=== PATIENT | female | born 1980 | race Caucasian/White ===

== ENCOUNTER 2016-12-06 22:21 | Inpatient (IN) ==
--- NOTE | 2016-12-06 23:13 | Emergency Department Note ---
Disposition Clinical Impression: Suicidal ideation Depression Qualifiers: Depression Type: major depressive disorder Active/Remission status: currently active Major depression episode severity: moderate Disposition: Admitted As Inpatient Condition: Good Time of Disposition: 01:38 Psych HPI - General Chief Complaint: ED Psychiatric Symptoms Stated Complaint: SI Time Seen by Provider: 12/06/16 22:58 Source: patient Mode of arrival: ambulatory Limitations: altered mental status Nursing Notes Reviewed: Yes Vital Signs Reviewed: Yes - History of Present Illness HPI Narrative: Patient has been recently , finalized in September,. She recently found out her ex- has started seeing one of her friends and she is quite upset. She was diagnosed as having bipolar disorder several years ago, has been on medication, but this recent stress has made her think of suicide. Her plan is to take an overdose of her medications. She states she has not acted upon any of these thoughts, and actually has had suicidal thoughts for some time now. She does take her medication on a regular basis, feels that it helps "somewhat". Recently her Latuda and Trazadone doses were increased. She was seeing Dr. Cheng, psychiatrist, but he has left the area so she currently without a psychiatrist. Her family physician, Dr. Soriano has been prescribing her medication. Pt complaint: suicidal ideation, feels depressed If medical clearance, reason: psychiatric condition Onset (ago): unknown Duration: changing over time, getting worse History of similar episodes: Yes Improves with: medication Context: significant life stressor Alleged intoxication: No Associated Psychiatric Symptoms: depression, suicidal ideation Traumatic symptoms: denies traumatic injury Treatments prior to arrival: none Self harm or harm to others: admits thoughts of self harm, has plan - Related Data Home Medications Medication Instructions Recorded Confirmed Buspirone HCl [Buspar] 10 mg PO BID 12/06/16 12/06/16 ClonazePAM [Klonopin] 0.5 mg PO BID PRN 12/06/16 12/06/16 Levothyroxine [Synthroid] 150 mcg PO DAILY 12/06/16 12/06/16 Lurasidone HCl [Latuda] 60 mg PO DAILY 12/06/16 12/06/16 Methylphenidate HCl 36 mg PO DAILY 12/06/16 12/06/16 [Methylphenidate ER] TraZODone 100 mg PO HS 02/08/17 02/08/17 Allergies Allergy/AdvReac Type Severity Reaction Status Date / Time No Known Allergies Allergy Verified 12/06/16 22:31 All systems ED: reviewed and negative except as stated. Constitutional: Denies: fever, chills, weakness, weight change Eyes: Denies: eye pain, eye discharge, vision change ENT ED: Denies: ear pain, throat pain, dental pain, hearing loss, epistaxis, congestion, dysphagia Cardiovascular: Denies: chest pain, palpitations, dyspnea on exertion, edema, syncope Respiratory: Denies: cough, dyspnea, wheezes, hemoptysis, stridor Gastrointestinal: Denies: abdominal pain, nausea, vomiting, diarrhea, constipation, hematemesis, melena, hematochezia Neurological: Denies: headache, weakness, numbness, paresthesias, confusion, abnormal gait, vertigo Psychiatric: Reports: anxiety, depression, suicidal thoughts Past Medical History - Past Medical History Attestation: Yes The following information was validated with the patient. Source: patient, obtained from family, nursing notes reviewed Medical history: Reports: non-contributory Psychiatric history: Reports: anxiety, bipolar, depression - Social History Smoking Status: Unknown if ever smoked Smokeless Tobacco Status: No Alcohol use: Reports: none Drug use: Reports: none Physical Exam - General Limitations: no limitations General appearance: alert - Head Head exam: atraumatic, normocephalic, normal inspection - Eye Eye exam: Present: normal appearance, PERRL, EOMI - ENT ENT exam: normal exam, normal oropharynx, mucous membranes moist - Neck Neck exam: Present: normal inspection, full ROM, trachea midline - Chest Chest inspection: Present: normal inspection, symmetric chest wall rise - Respiratory Respiratory exam: Present: normal lung sounds bilaterally - Cardiovascular Cardiovascular exam: Present: regular rate, normal rhythm, normal heart sounds - Extremities Exam Extremities exam: Present: normal inspection, full ROM. Absent: tenderness, pedal edema - Back Exam Back exam: Present: normal inspection, full ROM. Absent: tenderness - Neurological Exam Neurological exam: Present: alert, oriented X3, normal gait, reflexes normal - Psychiatric Psychiatric exam: Present: depressed, suicidal ideation - Skin Skin exam: Present: warm, dry, intact, normal color Course Vital Signs Temperature 98.1 F 12/06/16 22:35 Pulse Rate 90 12/06/16 22:35 Respiratory Rate 16 02/08/17 22:35 Blood Pressure 124/86 02/08/17 22:35 O2 Sat by Pulse Oximetry 97 12/06/16 22:35 Temperature 97.9 F 12/07/16 02:00 Pulse Rate 90 12/07/16 02:00 Respiratory Rate 12 12/07/16 02:00 Blood Pressure 141/101 12/07/16 02:00 O2 Sat by Pulse Oximetry 97 12/06/16 22:35 Oxygen Delivery Oxygen Delivery Room Air Psych - Lab Data Result diagrams: 12/06/16 23:26 12/06/16 23:26 Lab Results 12/06/16 12/06/16 12/06/16 Range/Units 23:00 23:26 23:26 WBC 7.5 (4.3-11.1) K/mcL RBC 4.61 (3.82-4.97) M/mcL Hgb 13.4 (11.5-15.4) g/dL Hct 40.4 (35.3-44.9) % MCV 87.6 (83.0-100.0) fL MCH 29.1 (28.0-33.3) pg MCHC 33.2 (31.6-35.5) g/dL RDW 12.1 (11.5-14.5) % Plt Count 302 (140-400) K/mcL MPV 8.8 L (9.4-12.4) fL Immature Gran % 0.3 (0-4) % Seg Neutrophils % 60.6 % Lymphocytes % 31.5 % Monocytes % 6.2 % Eosinophils % 0.9 % Basophils % 0.5 % Neutrophils # 4.6 (1.6-8.9) K/mcL Lymphocytes # 2.4 (0.6-4.6) K/mcL Monocytes # 0.5 (0.0-1.3) K/mcL Eosinophils # 0.1 (0.0-0.6) K/mcL Basophils # 0.0 (0.0-0.2) K/mcL Sodium 139 (136-145) mEq/L Potassium 3.7 (3.5-4.5) mEq/L Chloride 106 (98-109) mEq/L Carbon Dioxide 20 (19-29) mEq/L BUN 13 (7-20) mg/dL Creatinine 0.82 (0.57-1.11) mg/dL Est GFR ( Amer) > 60 (> 60) Est GFR (Non-Af Amer) > 60 (> 60) BUN/Creatinine Ratio 16 (6-26) Glucose 91 (70-99) mg/dL Calculated Osmolality 288 (280-300) Calcium 9.4 (8.6-10.8) mg/dL TSH 0.358 (0.350-4.840) mcIU/mL Urine Color (Yellow) Urine Clarity (Clear) Urine pH (5.0-8.0) pH Units Ur Specific [place] (1.010-1.025) Urine Protein (Neg-Trace) mg/dL Urine Glucose (UA) (Normal) mg/dL Urine Ketones (Negative) mg/dL Urine Blood (Negative) Urine Nitrite (Negative) Urine Bilirubin (Negative) Urine Urobilinogen (Normal) mg/dL Ur Leukocyte Esterase (Negative) Urine Test (Negative) Salicylates < 5.0 L (15-30) mg/dL Urine Opiates Screen Negative (Oehfht=700) ng/mL Acetaminophen < 1.0 L (10-30) mcg/mL Ur Barbiturates Screen Negative (Lnqmkp=051) ng/mL Ur Phencyclidine Scrn Negative (Cutoff=25) ng/mL Ur Amphetamines Screen Negative (Ugbsnn=6886) ng/mL U Benzodiazepines Scrn Negative (Gaejba=551) ng/mL Urine Cocaine Screen Negative (Cutoff= 300) ng/mL U Marijuana (THC) Screen Negative (Cutoff = 50) ng/mL Ethyl Alcohol < 10 (0-10) mg/dL 12/06/16 12/06/16 Range/Units 23:28 23:28 WBC (4.3-11.1) K/mcL RBC (3.82-4.97) M/mcL Hgb (11.5-15.4) g/dL Hct (35.3-44.9) % MCV (83.0-100.0) fL MCH (28.0-33.3) pg MCHC (31.6-35.5) g/dL RDW (11.5-14.5) % Plt Count (140-400) K/mcL MPV (9.4-12.4) fL Immature Gran % (0-4) % Seg Neutrophils % % Lymphocytes % % Monocytes % % Eosinophils % % Basophils % % Neutrophils # (1.6-8.9) K/mcL Lymphocytes # (0.6-4.6) K/mcL Monocytes # (0.0-1.3) K/mcL Eosinophils # (0.0-0.6) K/mcL Basophils # (0.0-0.2) K/mcL Sodium (136-145) mEq/L Potassium (3.5-4.5) mEq/L Chloride (98-109) mEq/L Carbon Dioxide (19-29) mEq/L BUN (7-20) mg/dL Creatinine (0.57-1.11) mg/dL Est GFR ( Amer) (> 60) Est GFR (Non-Af Amer) (> 60) BUN/Creatinine Ratio (6-26) Glucose (70-99) mg/dL Calculated Osmolality (280-300) Calcium (8.6-10.8) mg/dL TSH (0.350-4.840) mcIU/mL Urine Color Yellow (Yellow) Urine Clarity Clear (Clear) Urine pH 6.0 (5.0-8.0) pH Units Ur Specific [place] 1.019 (1.010-1.025) Urine Protein Negative (Neg-Trace) mg/dL Urine Glucose (UA) Normal (Normal) mg/dL Urine Ketones 40 H (Negative) mg/dL Urine Blood Negative (Negative) Urine Nitrite Negative (Negative) Urine Bilirubin Negative (Negative) Urine Urobilinogen Normal (Normal) mg/dL Ur Leukocyte Esterase Negative (Negative) Urine Test Negative (Negative) Salicylates (15-30) mg/dL Urine Opiates Screen (Emhxnw=841) ng/mL Acetaminophen (10-30) mcg/mL Ur Barbiturates Screen ([place]=927) ng/mL Ur Phencyclidine Scrn (Cutoff=25) ng/mL Ur Amphetamines Screen (Oqgcgq=0885) ng/mL U Benzodiazepines Scrn (Jwvmdk=560) ng/mL Urine Cocaine Screen (Cutoff= 300) ng/mL U Marijuana (THC) Screen (Cutoff = 50) ng/mL Ethyl Alcohol (0-10) mg/dL Psychiatric Medical Clearance - Medical Clearance Checklist Medical History: No Social History Section defined Current Vitals: Last Vital Signs Temp 97.9 F 12/07/16 02:00 Pulse 90 12/07/16 02:00 Resp 12 12/07/16 02:00 BP 141/101 12/07/16 02:00 Pulse Ox 97 12/06/16 22:35 Psychiatric Lab Panel: Drug Levels and Toxicity 12/06/16 12/06/16 23:00 23:26 Urine Opiates Screen Negative Acetaminophen < 1.0 L Ur Barbiturates Screen Negative Ur Phencyclidine Scrn Negative Ur Amphetamines Screen Negative U Benzodiazepines Scrn Negative Urine Cocaine Screen Negative U Marijuana (THC) Screen Negative Ethyl Alcohol < 10 Abnormal Labs: Abnormal lab results MPV 8.8 fL (9.4-12.4) L 12/06/16 23:26 Urine Ketones 40 mg/dL (Negative) H 12/06/16 23:28 Salicylates < 5.0 mg/dL (15-30) L 12/06/16 23:26 Acetaminophen < 1.0 mcg/mL (10-30) L 12/06/16 23:26 Statement of Medical Clearance: I have evaluated the patient, reviewed diagnostic information, and certify that the patient's medical condition is sufficiently stable that transfer to the psychiatric unit does not pose a significant risk of deterioration. Attestation Statement - Attestation Attestation: Dr. Palmer note: Patient seen in conjunction with the RAJ Masters, please see her chart for complete documentation. I agree the patient's treatment and disposition. Patient is medically stable at the time of admission to the psychiatrist at 1: 30 AM. Blood work has been reviewed and I spent [id number] time with the patient.
[2016-12-06 23:33] LABS: Basophils % 0.5 %; Eosinophils # 0.1 K/mcL (0.0-0.6); Eosinophils % 0.9 %; Hematocrit 40.4 % (35.3-44.9); Hemoglobin 13.4 g/dL (11.5-15.4); Immature Granulocytes % 0.3 % (0-4); Lymphocytes # 2.4 K/mcL (0.6-4.6); Lymphocytes % 31.5 %; Mean Corpuscular HGB Conc 33.2 g/dL (31.6-35.5); Mean Corpuscular Hemoglobin 29.1 pg (28.0-33.3); Mean Corpuscular Volume 87.6 fL (83.0-100.0); Mean Platelet Volume 8.8 fL (9.4-12.4); Monocytes # 0.5 K/mcL (0.0-1.3); Monocytes % 6.2 %; Neutrophils # 4.6 K/mcL (1.6-8.9); Platelet Count 302 K/mcL (140-400); Red Blood Count 4.61 M/mcL (3.82-4.97); Red Cell Distribution Width 12.1 % (11.5-14.5); Segmented Neutrophils % 60.6 %
[2016-12-06 23:35] LABS: Bilirubin,Urine Negative (Negative); Blood,Urine Negative (Negative); Clarity,Urine Clear (Clear); Color,Urine Yellow (Yellow); Glucose,Urine (UA) Normal (Normal); Ketones,Urine 40 mg/dL (Negative); Leukocyte Esterase,Urine Negative (Negative); Nitrite,Urine Negative (Negative); Protein,Urine Negative (Neg-Trace); Specific Gravity,Urine 1.019 (1.010-1.025); Urobilinogen,Urine Normal (Normal)
[2016-12-06 23:40] LABS: Amphetamine Screen,Urine Negative ng/mL (Cutoff=1000); Barbiturate Screen,Urine Negative ng/mL (Cutoff=200); Benzodiazepines Screen,Urine Negative ng/mL (Cutoff=200); Cannabinoid Screen,Urine Negative ng/mL (Cutoff = 50); Cocaine Screen,Urine Negative ng/mL (Cutoff= 300); Opiate Screen,Urine Negative ng/mL (Cutoff=300); Phencyclidine Screen,Urine Negative ng/mL (Cutoff=25)
[2016-12-06 23:46] LABS: BUN/Creatinine Ratio 16 (6-26); Blood Urea Nitrogen 13 mg/dL (7-20); Calcium 9.4 mg/dL (8.6-10.8); Carbon Dioxide 20 mEq/L (19-29); Chloride 106 mEq/L (98-109); Glucose 91 mg/dL (70-99); Osmolality,Calculated 288 (280-300); Potassium 3.7 mEq/L (3.5-4.5); Sodium 139 mEq/L (136-145); eGFR For African Americans > 60 (> 60); eGFR For Non-African Americans > 60 (> 60)
[2016-12-07 00:29] LABS: Acetaminophen < 1.0 mcg/mL (10-30); Ethanol < 10 mg/dL (0-10); Salicylate < 5.0 mg/dL (15-30)
[2016-12-07 00:46] LABS: Thyroid Stimulating Hormone 0.358 mcIU/mL (0.350-4.840)
[2016-12-07] MEDS ORDERED: Acetaminophen 325 MG TABLET PO PRN (02:30)
[2016-12-07] MEDS ORDERED: Mag Hydrox/Al Hydrox/Simeth 30 ML UDC PO PRN (02:30)
[2016-12-07] MEDS ORDERED: Haloperidol Lactate 5 MG/ML VIAL IM PRN (02:30)
[2016-12-07] MEDS ORDERED: hydrOXYzine pamoate 25 MG CAPSULE PO PRN (02:30)
[2016-12-07] MEDS ORDERED: *HR* LORazepam 2 MG/ML VIAL IM PRN (02:30)
[2016-12-07] MEDS ORDERED: MOM Conc 10 ML UD.LIQ PO PRN (02:30)
[2016-12-07] MEDS ORDERED: *HR* LORazepam 1 MG TABLET PO PRN (02:30)
[2016-12-07] MEDS ORDERED: traZODone 50 MG TABLET PO PRN (02:30)
[2016-12-07] MEDS ORDERED: clonazePAM 0.5 MG TABLET PO PRN (02:48)
[2016-12-07] MEDS: traZODone 50 MG TABLET PO SCH ×2 (03:48→20:58)
[2016-12-07] MEDS: Lurasidone 20 MG TABLET PO SCH (09:43)
[2016-12-07] MEDS: METHYLPHENIDATE 36 MG PO SCH (09:44)
--- NOTE | 2016-12-07 09:55 | Psychiatry History & Physical ---
Date of Encounter: 12/07/16 Time of Encounter: 09:52 History of Present Illness Patient Stated Chief Complaint: Suicidal Medicare Admission Attestation: For traditional Medicare patients the provided hospital inpatient services are reasonable and necessary and in the case of services not specified as inpatient -only under 42 CFR 419.22 (n), that they are appropriately provided as inpatient services in accordance 42 CFR 412.3. For Critical Access Hospital the patient may reasonably be expected to be discharged or transferred to a hospital within 96 hours after admission to the Critical Access Hospital. Admitted From: Emergency Dept History of Present Illness: Ms. Ryan is a 36 year old female admitted from the emergency room for depression and suicidal ideation. Patient is doing worse recent divorce and feeling depressed and suicidal. Patient had a history of depression and bipolar was treated with medication recently prescribed by her family doctor. Past Med Surg Social Fam HX - Past Medical History Medical history: non-contributory - Past Psychiatric History Psychiatric history: Reports: no psych history Family psychiatric history: Unknown Family History of Suicide: Unknown - Social History Smoking Status: Unknown if ever smoked Smokeless Tobacco Status: No Alcohol use: none Drug use: none - Family History Mother Hx Family Neurologic Disorders: Yes (brain annyherism) Father Hx Family Cardiac Disorders: Yes (CHF) Medications & Allergies Buspirone HCl [Buspar] 10 mg PO BID 12/06/16 [History] ClonazePAM [Klonopin] 0.5 mg PO BID PRN 12/06/16 [History] Levothyroxine [Synthroid] 150 mcg PO DAILY 12/06/16 [History] Lurasidone HCl [Latuda] 60 mg PO DAILY 12/06/16 [History] Methylphenidate HCl [Methylphenidate ER] 36 mg PO DAILY 12/06/16 [History] TraZODone 100 mg PO HS 12/06/16 [History] Allergies No Known Allergies Allergy (Verified 12/06/16 22:31) Review of Systems Psychiatric: Reports: depression, suicidal ideation, hopelessness Mental Status Exam Patient orientation: Yes Person, Yes Time, Yes Place Level of alertness: Alert Patient appearance: Appropriate, Well Groomed, Obese Behavior: calm, cooperative, anxious, tearful Psychomotor activity: Slowed Eye contact: Maintains Eye Contact Mood description: Depressed, Anxious Affect description: congruent with mood, full range Speech pattern: Normal rate, Normal rhythm, Normal tone Speech volume: Normal Thought process: Linear, Goal Oriented Thought content: Yes Suicidal ideation Perceptual disturbances: No Auditory hallucinations, No Visual hallucinations Attention span: Capable of Focused Attention Memory description: Grossly Intact Patient reliability: Reliable Historian Intelligence estimate: Average Judgment: Limited Insight: Partial Results - Vital Signs Vital signs: Temp Pulse Resp BP Pulse Ox 97.9 F 90 12 141/101 97 12/07/16 02:00 12/07/16 02:00 12/07/16 02:00 12/07/16 02:00 12/06/16 22:35 - Labs Labs: Laboratory Last Values WBC 7.5 K/mcL (4.3-11.1) 12/06/16 23:26 RBC 4.61 M/mcL (3.82-4.97) 12/06/16 23:26 Hgb 13.4 g/dL (11.5-15.4) 12/06/16 23:26 Hct 40.4 % (35.3-44.9) 12/06/16 23: MCV 87.6 fL (83.0-100.0) 12/06/16 23:26 MCH 29.1 pg (28.0-33.3) 12/06/16 23: MCHC 33.2 g/dL (31.6-35.5) 12/06/16 23:26 RDW 12.1 % (11.5-14.5) 12/06/16 23:26 Plt Count 302 K/mcL (140-400) 12/06/16 23:26 MPV 8.8 fL (9.4-12.4) L 12/06/16 23:26 Immature Gran % 0.3 % (0-4) 12/06/16 23: Seg Neutrophils % 60.6 % 12/06/16 23:26 Lymphocytes % 31.5 % 12/06/16 23: Monocytes % 6.2 % 12/06/16 23:26 Eosinophils % 0.9 % 12/06/16 23: Basophils % 0.5 % 12/06/16 23:26 Neutrophils # 4.6 K/mcL (1.6-8.9) 12/06/16 23:26 Lymphocytes # 2.4 K/mcL (0.6-4.6) 12/06/16 23:26 Monocytes # 0.5 K/mcL (0.0-1.3) 12/06/16 23:26 Eosinophils # 0.1 K/mcL (0.0-0.6) 12/06/16 23: Basophils # 0.0 K/mcL (0.0-0.2) 12/06/16 23:26 Sodium 139 mEq/L (136-145) 12/06/16 23:26 Potassium 3.7 mEq/L (3.5-4.5) 12/06/16 23: Chloride 106 mEq/L (98-109) 12/06/16 23: Carbon Dioxide 20 mEq/L (19-29) 12/06/16 23: BUN 13 mg/dL (7-20) 12/06/16: Creatinine 0.82 mg/dL (0.57-1.11) 12/06/16 23: Est GFR ( Amer) > 60 (> 60) 12/06/16 23: Est GFR (Non-Af Amer) > 60 (> 60) 12/06/16 23: BUN/Creatinine Ratio 16 (6-26) 12/06/16: Glucose 91 mg/dL (70-99) 12/06/16 23: Calculated Osmolality 288 (280-300) 12/06/16: Calcium 9.4 mg/dL (8.6-10.8) 12/06/16 23: TSH 0.358 mcIU/mL (0.350-4.840) 12/06/16 23: Urine Color Yellow (Yellow) 12/06/16: Urine Clarity Clear (Clear) 12/06/16: Urine pH 6.0 pH Units (5.0-8.0) 12/06/16: Ur Specific [place] 1.019 (1.010-1.025) 12/06/16: Urine Protein Negative mg/dL (Neg-Trace) 12/06/16: Urine Glucose (UA) Normal mg/dL (Normal) 12/06/16: Urine Ketones 40 mg/dL (Negative) H 12/06/16 23: Urine Blood Negative (Negative) 12/06/16 23: Urine Nitrite Negative (Negative) 12/06/16 23:28 Urine Bilirubin Negative (Negative) 12/06/16 23:28 Urine Urobilinogen Normal mg/dL (Normal) 12/06/16 23:28 Ur Leukocyte Esterase Negative (Negative) 12/06/16 23:28 Urine Test Negative (Negative) 12/06/16 23:28 Salicylates < 5.0 mg/dL (15-30) L 12/06/16 23:26 Urine Opiates Screen Negative ng/mL (Vbszhd=894) 12/06/16 23:00 Acetaminophen < 1.0 mcg/mL (10-30) L 12/06/16 23:26 Ur Barbiturates Screen Negative ng/mL (Mmsfqo=899) 12/06/16 23:00 Ur Phencyclidine Scrn Negative ng/mL (Cutoff=25) 12/06/16 23:00 Ur Amphetamines Screen Negative ng/mL (Rscmef=0801) 12/06/16 23:00 U Benzodiazepines Scrn Negative ng/mL (Qzohqa=422) 12/06/16 23:00 Urine Cocaine Screen Negative ng/mL (Cutoff= 300) 12/06/16 23:00 U Marijuana (THC) Screen Negative ng/mL (Cutoff = 50) 12/06/16 23:00 Ethyl Alcohol < 10 mg/dL (0-10) 12/06/16 23:26 Assessment and Plan (1) Depression Current visit: Yes Status: Acute Plan: Admit inpatient for safety and stabilization, Close observation, Suicide Precautions per unit protocol, Encourage participation in unit milieu, Group Therapy, Monitor sleep, Monitor appetite Additional Plan: Will add Effexor XR 75 mg daily as an antidepressant benefit and side effects were discussed with the patient and she is agreeable to start. Risks, benefits, side effects, alternatives discussed w/pt: Yes Patient agreeable to treatment: Yes Estimated Length of Stay (Days): 5 Qualifiers: Depression Type: major depressive disorder Major depression recurrence: recurrent Active/Remission status: currently active Major depression episode severity: moderate Qualified Code(s): F33.1 - Major depressive disorder, recurrent, moderate
[2016-12-07] MEDS: Venlafaxine XR (24 HR) 75 MG CAP.ER.24H PO SCH (11:02)
[2016-12-08] MEDS: Lurasidone 20 MG TABLET PO SCH (08:24)
[2016-12-08] MEDS: Venlafaxine XR (24 HR) 75 MG CAP.ER.24H PO SCH (08:24)
[2016-12-08 08:44] VITALS: BP 137/95
[2016-12-08] MEDS: METHYLPHENIDATE 36 MG PO SCH (09:36)
--- NOTE | 2016-12-08 13:58 | Discharge Summary ---
Date of Encounter: 12/08/16 Time of Encounter: 13:52 Diagnosis - Discharge Diagnosis (1) Depression Status: Acute Qualifiers: Depression Type: major depressive disorder Major depression recurrence: recurrent Active/Remission status: currently active Major depression episode severity: moderate Qualified Code(s): F33.1 - Major depressive disorder, recurrent, moderate Medications - Discharge Medications Prescriptions: Venlafaxine XR (24 HR) [Effexor XR] 75 mg PO DAILY #30 cap.er.24h Buspirone HCl [Buspar] 10 mg PO BID 12/06/16 [History] ClonazePAM [Klonopin] 0.5 mg PO BID PRN 12/06/16 [History] Levothyroxine [Synthroid] 150 mcg PO DAILY 12/06/16 [History] Lurasidone HCl [Latuda] 60 mg PO DAILY 12/06/16 [History] Methylphenidate HCl [Methylphenidate ER] 36 mg PO DAILY 12/06/16 [History] TraZODone 100 mg PO HS 12/06/16 [History] Venlafaxine XR (24 HR) [Effexor XR] 75 mg PO DAILY #30 cap.er.24h 12/08/16 [Rx] Allergies No Known Allergies Allergy (Verified 12/06/16 22:31) Provider Date of admission: 12/07/16 01:37 Primary care physician: Penny Patel Discharging clinician: Justino Barger Assessment and Plan - Patient/Caregiver Discharge Instructions Activity: resume usual activities as tolerated Diet: regular diet - Follow up Plan Follow up with: [facility] [Outside] - 12/13/16 1:00 pm (The above appointment is with Khalif Menezes for counseling. You will also see Lamar Stoner, psychiatric prescriber, on 01/04/2017 at 11:00AM.) Functional capacity at discharge: independent ambulation Overall status at discharge: Stable Disposition: Home, Self-Care Hospital Course Hospital course: Ms. Ryan is a 36 year old female admitted from the emergency room for depression and suicidal ideation after learning that her will divorce her. For details of the admission please see H&P On the units patient was evaluated for medication review and Effexor xr was added. She tolerated medications well without side effects, sleep and appetite improved. Her mood and affect improved and she denied hopelessness and suicidal ideation. She is future oriented and look forward to her son visitation tomorrow for the weekend. Prior to discharge she was medically stable and optimistic and reporting improved energy and motivation. - Time Spent with Patient Total time spent providing and/or coordinating discharge services: Greater than 30 minutes Quality - Multiple Antipsychotics Patient discharged on 2 or more antipsychotic medications: No Procedures - Procedures Procedures: Medication Management, Crisis Stabilization, Supportive Therapy, Group Therapy, Psychoeducational Therapy Mental Status Exam - Mental Status Exam Patient orientation: Yes Person, Yes Time, Yes Place Level of alertness: Alert Patient appearance: Appropriate, Well Groomed, Obese Behavior: calm, cooperative Psychomotor activity: Normal Eye contact: Maintains Eye Contact Mood description: Euthymic/stable Affect description: congruent with mood, full range Speech pattern: Normal rate, Normal rhythm, Normal tone Speech Volume: Normal Thought process: Intact, Logical, Linear, Goal Oriented Thought Content: Yes Intact, No Suicidal ideation, No Homicidal ideation Perceptual Disturbances: No Auditory hallucinations, No Visual hallucinations Judgment: Good Insight: Full
== END 2016-12-08 16:10 | disposition home or self-care (01) | DRG 885 ==
LOC: EMEROO 22:21 → 1ANU 12-07 01:37
PROVIDERS: ADMIT Psychiatry & Neurology Psychiatry; ATTEND Psychiatry & Neurology Psychiatry